=== PATIENT | male | born 1970 | race African-American/Black ===

== ENCOUNTER 2022-08-17 04:47 | Emergency (ER) | payer OTHER ==
[~2022-08-17] VITALS: Ht 175.3 cm; Wt 83.9 kg
[2022-08-17 04:58] VITALS: BP_SYST 112
[2022-08-17] MEDS ORDERED: KETOROLAC TROMETHAMINE 30 MG VIAL IM ONE (05:00)
[2022-08-17] MEDS ORDERED: LIDOCAINE PATCH 5% 1 EA TP ONE (05:00)
[2022-08-17] MEDS ORDERED: CYCLOBENZAPRINE HCL 10 MG TABLET (FLEXERIL) PO ONE (05:30)
[2022-08-17] MEDS ORDERED: CYCL10TA24 PO (05:31)
[2022-08-17] MEDS ORDERED: IBUP-1969 PO (05:31)
[2022-08-17] MEDS ORDERED: LIDO1ADH77 TD (05:31)
[2022-08-17] MEDS ORDERED: HYDROcodone/ACETAMIN 5-325 MG TAB (NORCO/ VICODIN) PO ONE (09:45)
[2022-08-17 10:43] VITALS: BP_SYST 134
== END 2022-08-17 10:47 | disposition home or self-care (01) ==
LOC: SED 04:47
DX: S32.010A Wedge compression fracture of first lumbar vertebra, initial encounter for closed fracture (principal); S39.012A Strain of muscle, fascia and tendon of lower back, initial encounter; Z79.899 Other long term (current) drug therapy; V47.5XXA Car driver injured in collision with fixed or stationary object in traffic accident, initial encounter; Y93.89 Activity, other specified; Y92.89 Other specified places as the place of occurrence of the external cause; Y99.8 Other external cause status
CPT/HCPCS: 99284; 96374; 72110; J1885